=== PATIENT | female | born 2005 | race Two or more races ===

== ENCOUNTER 2025-02-20 20:25 | Observation (INO) | payer MEDICAID, OTHER ==
--- NOTE | 2025-02-21 06:45 | DVHDS2 ---
Discharge Summary Date of Admission Feb 20, 2025 at 20:25 Date of Discharge: Feb 20, 2025 Admitting Diagnosis decreased movement 39 weeks, Brief Hx & Hospital Course: NST performed , decreased movement Operations or Procedures nst performed and Ultrasound Condition at Discharge: Good Final Diagnosis/Problems List reasuring fht and evaluation Discharge Disposition: Home Discharge Instruct/Medications Diet: Regular Discharge Statement: "Patient was advised to return to the ER or call 911 if any headaches, dizziness, shortness of breath, chest pain, abdominal pain, bleeding, fevers, or worsening of medical condition. Patient was counseled about treatment plan, medications, possible side effects, patientverbalized understanding. All questions were answered to the best of my ability. This discharge took greater then 30 minutes in planning, reviewing documentation, counseling the patient, and discussing with other team members." ASSESSMENT ASSESSMENT Assessment Visit Coding OBGYN Date of Service: Feb 20, 2025 Billing Provider: PRADIP RICARDO DO [employer]PERATIONS EXECUTIVE Common Visit Codes: 94024-VFZ/OBS SAME DATE (LOW), 49613-ISZ/OBS SAME D ATE (MOD), 72000-IBV/OBS SAME DATE (HIGH) [employer]PERATIONS EXECUTIVE Procedure Codes: 18083-35- NON-STRESS TEST PRADIP RICARDO DO Feb 21, 2025 06:45
== END 2025-02-20 21:25 | disposition left against medical advice (07) ==
LOC: LDRP 20:25
PROVIDERS: ADMIT Obstetrics & Gynecology; ATTEND Obstetrics & Gynecology
DX: O36.8130 Decreased fetal movements, third trimester, not applicable or unspecified (principal); Z3A.39 39 weeks gestation of pregnancy; Z98.890 Other specified postprocedural states
CPT/HCPCS: 59025; 81002; 94760; G0378